=== PATIENT | male | born 1960 | race Caucasian/White ===

== ENCOUNTER → 2016-12-22 | Outpatient (CLI) | payer MEDICARE | END | disposition home or self-care (01) | LOC: GMAM 10:50 | PROVIDERS: ATTEND Family Medicine | DX: Z12.5 Encounter for screening for malignant neoplasm of prostate (principal); I10 Essential (primary) hypertension ==

== ENCOUNTER 2017-11-11 07:49 | Emergency (ER) | payer MEDICARE ==
[2017-11-11 08:11] VITALS: TEMP 97.8
[2017-11-11 08:51] VITALS: BP 112/61; O2SAT 68
--- NOTE | 2017-11-11 09:00 | CT ---
EXAM DESCRIPTION: Head CLINICAL HISTORY: dizziness on blood thinners COMPARISON: November 09, 2017 TECHNIQUE: Noncontrast transaxial CT images of the head are obtained from base to vertex. This exam was performed according to our departmental dose-optimization program, which includes automated exposure control, adjustment of the mA and/or kV according to patient size and/or use of iterative reconstruction technique. FINDINGS: The midline structures are not displaced. The sulci are age appropriate. The lateral, third, and fourth ventricles are normal in size, shape, and anatomic positioning. There is no evidence of mass, mass effect, hydrocephalus, or acute intracranial hemorrhage. No abnormal extra axial fluid collections are seen. Normal quintero-white differentiation is seen. The visualized bone windows show no depressed skull fracture or significant abnormality. The visualized paranasal sinuses and mastoid air cells are clear. Partly visualized is a 2.5 mm metallic density possibly catheter tip measuring 6 mm in length anteriorly on the left at the level of the foramen magnum process seen on axial image 1 of series 3 and coronal image 78. IMPRESSION: 1. No acute abnormality is seen on noncontrast CT of the head. 2. Metallic density possible catheter tip in the upper cervical spinal canal to foramen magnum on the left. Correlate with patient history of any spinal infusion catheter or dorsal column stimulator or other surgery/procedure. 3. No CT evidence of acute intracranial hemorrhage. Electronically signed by: Chepe López MD 11/11/2017 8:59 AM CDT
--- NOTE | 2017-11-11 09:03 | RAD ---
Portable chest INDICATION: Dizziness body aches COMPARISON: January 02, 2014 IMPRESSION: Normal heart size. Lungs are clear. No acute chest process. Electronically signed by: Rob Garnica MD 11/11/2017 9:02 AM CDT
[2017-11-11] MEDS ORDERED: SODIUM CHLORIDE 0.9% 1000ML 1,000 ML IVS ONE (09:11)
[2017-11-11] MEDS ORDERED: KETOROLAC TROMETHAMINE INJ 30 MG/ML VIAL ONE (10:11)
--- NOTE | 2017-11-11 11:21 | ED.PDOC ---
History of Present Illness - General Chief Complaint: General Stated Complaint: Dizziness, "hurts all over" Time Seen by Provider: 11/11/17 08:01 - History of Present Illness Allergies/Adverse Reactions: Allergies NO KNOWN ALLERGY Allergy (Verified 01/02/14 13:09) Home Medications: Ambulatory Orders Clopidogrel Bisulfate [Plavix] 75 mg PO QD 01/02/14 Lisinopril 20 mg PO DAILY 01/02/14 Metoprolol Succinate [Metoprolol Succinate ER] 25 mg PO BID 01/02/14 Rosuvastatin Calcium [Crestor] 40 mg PO BEDTIME 01/02/14 Methadone HCl [Methadone HCl] 20 mg PO BID 11/11/17 Oxycodone HCl [Oxycodone HCl] 20 mg PO QID 11/11/17 Past Medical History (General) - Patient Medical History Hx Seizures: No Hx Stroke: No Hx Dementia: No Hx Asthma: No Hx of COPD: Yes Hx Cardiac Disorders: Yes - hypercholesterolemia; [place] x 6 Hx Congestive Heart Failure: No Hx Pacemaker: No Hx Hypertension: Yes Hx Thyroid Disease: No Hx Diabetes: No Hx Gastroesophageal Reflux: Yes Hx Renal Disease: No Hx Cancer: No Hx Hepatitis C: No Surgical History: other - Vaccination History Hx Tetanus, Diphtheria Vaccination: Yes Hx Influenza Vaccination: No Hx Pneumococcal Vaccination: No - Social History Hx Tobacco Use: Yes Hx Chewing Tobacco Use: No Hx Alcohol Use: No Hx Substance Use: No Hx Substance Use Treatment: No Hx Depression: No Hx Physical Abuse: No Hx Emotional Abuse: No Hx Suspected Abuse: No - Female History Patient : No Family Medical History - Family History Paternal Living Status: Hx Cardiac Disease: Yes Progress - Results/Orders Results/Orders: see papar report. ua within normal limits Departure - Departure Disposition: Discharge to Home or Self Care Departure Forms: ED Discharge - Pt. Copy, Patient Portal Self Enrollment Referrals: Abdullahi Obando MD [Primary Care Provider] - 1-2 Weeks Home Medications: Ambulatory Orders Clopidogrel Bisulfate [Plavix] 75 mg PO QD 01/02/14 Lisinopril 20 mg PO DAILY 01/02/14 Metoprolol Succinate [Metoprolol Succinate ER] 25 mg PO BID 01/02/14 Rosuvastatin Calcium [Crestor] 40 mg PO BEDTIME 01/02/14 Methadone HCl [Methadone HCl] 20 mg PO BID 08/23/18 Oxycodone HCl [Oxycodone HCl] 20 mg PO QID 11/11/17
== END 2017-11-11 10:35 | disposition home or self-care (01) ==
LOC: ER 07:49
DX: F07.81 Postconcussional syndrome (principal); F11.23 Opioid dependence with withdrawal; G44.309 Post-traumatic headache, unspecified, not intractable; I25.2 Old myocardial infarction; I10 Essential (primary) hypertension; E78.00 Pure hypercholesterolemia, unspecified; J44.9 Chronic obstructive pulmonary disease, unspecified; K21.9 Gastro-esophageal reflux disease without esophagitis; Z79.899 Other long term (current) drug therapy; Z87.891 Personal history of nicotine dependence
CPT/HCPCS: 36415; 70450; 71045; 80053; 80307; 81001; 82550; 82553; 83605; 83735; 83880; 84443; 84484; 85025; 85379; 85610; 85730; 87086; 93005; J1885; J7030

== ENCOUNTER → 2018-04-01 | Outpatient (CLI) | payer MEDICARE ==
--- NOTE | 2018-04-01 13:58 | MRI ---
EXAM DESCRIPTION: Lumbar Spine w/o Contrast : Magnetic Resonance Imaging. CLINICAL HISTORY: RADICULOPATHY COMPARISON: None. TECHNIQUE: Multiplanar, multiple standard sequences, non contrast MRI, lumbar spine. FINDINGS: L5-S1: Partial bony fusion of the disc space with interbody fusion device and magnetic susceptibility artifact. Bilateral moderate foraminal narrowing with mild canal narrowing. Bilateral facet joints are partially fused. L4-5: Anterior screw above the inferior L4 endplate with anterior interspace fusion device. Magnetic susceptibility artifact. Bone graft material also in the lateral disc space on the left. Moderate to severe right foraminal narrowing and moderate left foraminal narrowing with mild canal narrowing. Bilateral facet joint effusion and posterior decompression. L3-4: Anterior interspace fusion with anterior screws above and below the disc space. Artifact partially obscures the anterior disc space. Bone graft material in the mid and posterior disc space. Mild bilateral foraminal narrowing. Mild canal narrowing. Bilateral facet joint fusion and posterior decompression. L2-3: Anterior space effusion anteriorly with superior and inferior screw attachment. Bone graft material in the remainder of the disc space. Mild canal narrowing. Bilateral foramina are patent. Posterior facet joints are fused; minimal flavum ligament hypertrophy and mild canal narrowing. L1-2: Disc desiccation and Schmorl's node inferior L1 endplate. No posterior bulge. Hypertrophic changes in the flavum ligaments and facet joints resulting in borderline mild canal stenosis. Bilateral moderate foraminal narrowing. T12-L1: Disc desiccation and tiny posterior midline bulge. Disc space preserved. Minimal anterior bulge more to the left with anterior endplate spurs. Anterior left lateral Modic type II endplate reactive changes. Posterior flavum ligament hypertrophy and minimal facet arthrosis with moderate canal narrowing. Bilateral mild foraminal narrowing. Marrow edema in the bilateral T12 pedicles. Questionable defect in the left T12 pars interarticularis. Spine is slightly kyphotic at the L1-L4 levels. Paravertebral soft tissues unremarkable.. Normal marrow signal in the remaining vertebral bodies and the posterior elements. Vertebral bodies are not compressed at any level. IMPRESSION: 1. Multiple fusions previous fusions at L5-S1, L4-5, L3-4, and L2-3. Anterior fusion devices still present at L2-3, L3-4, and L4-5. No abnormal fluid accumulation paravertebral soft tissues or in the spinal canal. Bone graft material also seen at L to 3, L3-4, and L4-L5. Residual interbody fusion device at L5-S1 with possible subsidence. 2. Borderline mild canal stenosis at L1-2 predominantly due to hypertrophic posterior elements. Bilateral moderate foraminal narrowing. 3. Moderate to severe right foraminal narrowing and moderate left foraminal narrowing at L4-5. Correlate for right L4 radiculopathy. 4. Bilateral T12 pedicles with marrow edema is could be related to stress. Questionable defect in the left T12 pars interarticularis. Electronically signed by: Kailash Diaz MD 04/01/2018 1:56 PM [facility]
== END ==
LOC: MRI 07:52
PROVIDERS: ATTEND Psychiatry & Neurology Neurology
DX: M54.16 Radiculopathy, lumbar region (principal); M48.061 Spinal stenosis, lumbar region without neurogenic claudication; Z98.1 Arthrodesis status

== ENCOUNTER 2018-04-22 08:02 | Emergency (ER) | payer MEDICARE ==
--- NOTE | 2018-04-22 09:11 | RAD ---
EXAM DESCRIPTION: Chest,1 View CLINICAL HISTORY: 57 years Male, fever COMPARISON: Chest radiograph 11/11/2017. TECHNIQUE: Frontal and lateral views of the chest. IMPRESSION: Cardiac silhouette is stably enlarged. Aorta is partially calcified. Patchy airspace opacities are present throughout the lungs with moderate right greater than left basal consolidations. This can be seen with multifocal pneumonia. There is a somewhat circumscribed oval-shaped opacity in the right upper lung overlying the posterior right fifth rib. This may represent additional site of infection. Recommend follow-up to resolution to exclude underlying neoplasm. No pleural effusion or pneumothorax. Osseous structures are intact. Electronically signed by: Jaciel La MD 04/22/2018 9:09 AM [facility]
[2018-04-22] MEDS ORDERED: cefTRIAXone SODIUM 2 GM in SODIUM CHL 0.9% 100ML MINI-BAG 100 ML IVPB ONE (09:26)
--- NOTE | 2018-04-22 09:32 | ED.PDOC ---
History of Present Illness - General Chief Complaint: General Stated Complaint: cough Time Seen by Provider: 04/22/18 08:33 Source: patient Exam Limitations: no limitations - History of Present Illness Initial Comments: Liban Kumar 57 y/o male stated that he had mildly productive cough for the last 4 days which had been getting worse for the last 3 days.Also had body aches and fever.He continue to smoke almost 2 ppd ;exposed to several people with same illness. Had no flu immunization this year.Has history of CAD s/p cardiac stents x 8 and stated not been taking his medications regularly due to some bleeding.Also has chronic back pain from previous surgery and back injuries on chronic opiod medications. Timing/Duration: other - 6 days Severity: moderate Improving Factors: nothing Worsening Factors: nothing Associated Symptoms: cough Allergies/Adverse Reactions: Allergies NO KNOWN ALLERGY Allergy (Verified 01/02/14 13:09) Home Medications: Ambulatory Orders Clopidogrel Bisulfate [Plavix] 75 mg PO QD 01/02/14 Lisinopril 20 mg PO DAILY 01/02/14 Metoprolol Succinate [Metoprolol Succinate ER] 25 mg PO BID 01/02/14 Rosuvastatin Calcium [Crestor] 40 mg PO BEDTIME 01/02/14 Methadone HCl 20 mg PO BID 11/11/17 Oxycodone HCl 20 mg PO QID 11/11/17 Cefuroxime Axetil [Ceftin] 500 mg PO Q12H 10 Days #20 tablet 04/22/18 Doxycycline Hyclate 100 mg PO BID 7 Days #14 tab 04/22/18 Oseltamivir Capsule [Tamiflu] 75 mg PO BID 5 Days #10 capsule 04/22/18 Review of Systems - Review of Systems Constitutional: States: no symptoms reported EENTM: States: no symptoms reported Respiratory: States: see HPI Cardiology: States: no symptoms reported Gastrointestinal/Abdominal: States: no symptoms reported Genitourinary: States: no symptoms reported Musculoskeletal: States: see HPI, back pain - chronic Neurological: States: no symptoms reported Endocrine: States: no symptoms reported Hematologic/Lymphatic: States: no symptoms reported All other Systems: Reviewed and Negative Past Medical History (General) - Patient Medical History Hx Seizures: No Hx Stroke: No Hx Dementia: No Hx Asthma: No Hx of COPD: Yes Hx Cardiac Disorders: Yes - hypercholesterolemia; [place] x 6 Hx Congestive Heart Failure: No Hx Pacemaker: No Hx Hypertension: Yes Hx Thyroid Disease: No Hx Diabetes: No Hx Gastroesophageal Reflux: Yes Hx Renal Disease: No Hx Cancer: No Hx Hepatitis C: No Surgical History: other - cardiac stents,back surgeries - Vaccination History Hx Tetanus, Diphtheria Vaccination: Yes Hx Influenza Vaccination: No Hx Pneumococcal Vaccination: No - Social History Hx Tobacco Use: Yes Hx Chewing Tobacco Use: No Hx Alcohol Use: No Hx Substance Use: No Hx Substance Use Treatment: No Hx Depression: No Hx Physical Abuse: No Hx Emotional Abuse: No Hx Suspected Abuse: No - Activities of Daily Living Patient Lives Alone: No - Female History Patient : No Family Medical History - Family History Paternal Living Status: Hx Cardiac Disease: Yes - multiple family members Physical Exam - Physical Exam General Appearance: Alert, Comfortable, No apparent distress Eye Exam: bilateral normal Ears, Nose, Throat: hearing grossly normal, normal ENT inspection, normal pharynx Neck: non-tender, full range of motion, supple, normal inspection Respiratory: chest non-tender, no respiratory distress, decreased breath sounds Cardiovascular/Chest: normal peripheral pulses, regular rate, rhythm, no murmur Peripheral Pulses: radial,right: 2+, radial,left: 2+ Gastrointestinal/Abdominal: non tender, soft, no organomegaly Back Exam: no CVA tenderness, no vertebral tenderness Neurologic: alert, oriented x 3 Skin Exam: normal color, warm/dry Lymphatic: no adenopathy Progress - Progress Progress: 04/22/18 09:43 Vital Signs - 8 hr 04/22/18 08:02 Temperature 101.8 F H Pulse Rate [ 101 H Left Brachial] Respiratory 20 Rate Blood Pressure 167/96 [Left Arm] O2 Sat by Pulse 93 L Oximetry 04/22/18 10:33 Discuss all test result with patient regarding positve flu a and CXR-pne that he needs to stay in the hospital he stated prefers to be treated at home since he will recover better and faster recommended IV antibiotic here in er and agreed with plan and to call oral antibiotics at [facility] stated to come back to ER if he gets worse. - Results/Orders Results/Orders: 04/22/18 08:34 URINALYSIS Stat Laboratory Results - last 24 hr 04/22/18 04/22/18 04/22/18 08:48 08:48 08:48 WBC 8.3 RBC 4.68 L Hgb 12.8 L Hct 39.1 L MCV 83.6 MCH 27.3 MCHC 32.8 L RDW 15.7 H Plt Count 186 MPV 9.0 Absolute Neuts (auto) 6.40 Absolute Lymphs (auto) 1.10 Absolute Monos (auto) 0.60 Absolute Eos (auto) 0.10 Absolute Basos (auto) 0.10 Neutrophils % 77.4 Lymphocytes % 13.7 L Monocytes % 7.0 Eosinophils % 1.1 Basophils % 0.8 Sodium 132 L Potassium 3.8 Chloride 97 L Carbon Dioxide 28 Anion Gap 10.8 L BUN 12 Creatinine 0.70 BUN/Creatinine Ratio 17.1 Random Glucose 131 H Serum Osmolality 266.1 L Lactic Acid 0.9 Calcium 8.5 Positive FLU -A - EKG/XRAY/CT XRAY: chest - multi focal patchy infiltrates Departure - Departure Clinical Impression: Influenza A Pneumonia Qualifiers: Pneumonia type: due to unspecified organism Laterality: bilateral Lung location: unspecified part of lung Qualified Code(s): J18.9 - Pneumonia, u nspecified organism Time of Disposition: 10:40 Disposition: Discharge to Home or Self Care Condition: Fair Departure Forms: ED Discharge - Pt. Copy, Patient Portal Self Enrollment Instructions: Flu, Flu, Adult (DC), Community-Acquired Pneumonia in Adults, Pneumonia, Adult (DC), Quitting Smoking for Older Adults, Quitting Smoking Referrals: Abdullahi Obando MD [Primary Care Provider] - 1-2 Weeks Prescriptions: Cefuroxime Axetil [Ceftin] 500 mg PO Q12H 10 Days #20 tablet Doxycycline Hyclate 100 mg PO BID 7 Days #14 tab Oseltamivir Capsule [Tamiflu] 75 mg PO BID 5 Days #10 capsule Home Medications: Ambulatory Orders Clopidogrel Bisulfate [Plavix] 75 mg PO QD 01/02/14 Lisinopril 20 mg PO DAILY 01/02/14 Metoprolol Succinate [Metoprolol Succinate ER] 25 mg PO BID 01/02/14 Rosuvastatin Calcium [Crestor] 40 mg PO BEDTIME 01/02/14 Methadone HCl 20 mg PO BID 11/11/17 Oxycodone HCl 20 mg PO QID 11/11/17 Cefuroxime Axetil [Ceftin] 500 mg PO Q12H 10 Days #20 tablet 04/22/18 Doxycycline Hyclate 100 mg PO BID 7 Days #14 tab 04/22/18 Oseltamivir Capsule [Tamiflu] 75 mg PO BID 5 Days #10 capsule 04/22/18 Additional Instructions: Tylenol 500 mg every 4 hours for fever;Drink extra fluids;continue with all home medications;Return to Emergency Room as needed;May take Mucinx DM 1-2 tablets am/pm for cough and Benadry 25 mg at bedtime
[2018-04-22 09:42] VITALS: BP 167/96; TEMP 101.8
[2018-04-22] MEDS ORDERED: OSELTAMIVIR 75 MG CAP PO ONE (09:48)
[2018-04-22] MEDS ORDERED: SODIUM CHL 0.9% 100ML MINI-BAG 100 ML IVPB ONE (10:09)
[2018-04-22] MEDS ORDERED: ACETAMINOPHEN 500 MG TAB PO ONE (10:37)
[2018-04-22] MEDS ORDERED: DOXYCYCLINE HYCLATE CAP 100 MG CAP PO ONE (10:38)
[2018-04-22 12:12] VITALS: O2SAT 95
== END 2018-04-22 11:32 | disposition home or self-care (01) ==
LOC: ER 08:02
DX: J18.9 Pneumonia, unspecified organism (principal); J10.1 Influenza due to other identified influenza virus with other respiratory manifestations; J44.9 Chronic obstructive pulmonary disease, unspecified; E78.00 Pure hypercholesterolemia, unspecified; I25.2 Old myocardial infarction; I10 Essential (primary) hypertension; K21.9 Gastro-esophageal reflux disease without esophagitis; Z95.5 Presence of coronary angioplasty implant and graft; Z79.899 Other long term (current) drug therapy; Z87.891 Personal history of nicotine dependence
CPT/HCPCS: 71045; 80048; 83605; 85025; 87502; J0696; J7050

== ENCOUNTER → 2018-05-17 | Outpatient (CLI) | payer MEDICARE | LOC: GMAM 14:26 | PROVIDERS: ATTEND Family Medicine | DX: J18.9 Pneumonia, unspecified organism (principal) ==

== ENCOUNTER → 2018-05-19 | Outpatient (CLI) | payer MEDICARE ==
--- NOTE | 2018-05-19 09:47 | CT ---
EXAM DESCRIPTION: Chest w/Contrast CLINICAL HISTORY: 57 years, Male, PULMONARY NODULE COMPARISON: X-ray chest April 22, 2018 TECHNIQUE: Thin-section noncontrast axial CT images are obtained according to our protocol. Reconstructed MPR images are created and reviewed as well. FINDINGS: Lungs: Reticulonodular scarring in the left apex is seen consistent with old granulomatous infection. Subpleural cystic changes in the right apex with few scattered granulomatous nodules. Nodular density in the right upper lobe seen on the chest x-ray April 22, 2018 is correlated with the present findings. Small densities are seen in the right upper lobe. A 6 mm nodule with irregular margins is seen on axial image 37, series 4 with small cluster of nodules in the posterior segment of the right upper lobe, the largest measuring 7 mm (axial image 44, series 4). Other scattered smaller nodules are present, fairly numerous. Nodular infiltrate posterior to the right pulmonary hilum is present. Minimal patchy groundglass infiltrates in the right upper lobe above the minor fissure. It has been four weeks since the previous chest x-ray and the nodular infiltrate in the right upper lobe and confluent area in the left perihilar region have apparently improved since that time. These present CT findings are unlikely to be visible on a chest x-ray. Mild subpleural fibrotic changes are seen in the lingula and anterior segment left upper lobe no acute appearing infiltrate or worrisome mass in the left lung. Mediastinum: Lymph nodes are normal in size. Normal vascular contours. Heart size is normal with no pericardial effusion. Moderate coronary arterial calcification is present. Chest wall/axilla: No mass or adenopathy. Lower neck/supraclavicular: No mass or adenopathy. Upper abdomen: Tiny cyst in the left lobe of liver measures 3 mm. No calcified stones in the gallbladder. Otherwise unremarkable upper abdominal viscera. Coronal and sagittal reformatted images confirm the findings. Sagittal images show midthoracic vertebral wedging with multilevel Schmorl's nodes and vacuum disc phenomenon. Mild posterior annular bulges in the mid thoracic level without significant spinal canal compromise. Sagittal images show tiny nodule in the superior segment left lower lobe 3 mm (sagittal image 172, series 601) patchy groundglass infiltrates in both lungs are apparent on the sagittal and coronal reformatted images. Pulmonary nodules should be followed up as per recommendations below (Fleischner Society 2017). IMPRESSION: Small pulmonary nodules 3 to 7 mm with scattered areas of groundglass infiltrate. Findings are most consistent with infectious process. Follow-up as per recommendations below. 2017 Fleischner Society Recommendations for Multiple Solid Lung Nodules Follow-Up base on size (average of long- and short-axis diameters). Use most suspicious nodule for followup. Nodule Size <6 mm Low-Risk Patient: No routine follow-up Nodule Size <6 mm High-Risk Patient: Optional CT at 12 months Nodule Size 6-8 mm Low-Risk Patient: CT at 3-[address] at 18-24 months Nodule Size 6-8 mm High-Risk Patient: CT at 3-6 months then at 18-24 months This exam was performed according to our departmental dose-optimization program, which includes automated exposure control, adjustment of the mA and/or kV according to patient size and/or use of iterative reconstruction technique. Total DLP equals 882.12 mGycm. Electronically signed by: Bar Nation MD 05/19/2018 9:44 AM [facility]
== END ==
LOC: CT 08:21
PROVIDERS: ATTEND Family Medicine
DX: R91.1 Solitary pulmonary nodule (principal)

== ENCOUNTER → 2018-07-08 | Outpatient (CLI) | payer MEDICARE | LOC: GMAM 10:55 | PROVIDERS: ATTEND Family Medicine | DX: I10 Essential (primary) hypertension (principal); E78.2 Mixed hyperlipidemia ==

== ENCOUNTER → 2018-07-25 | Outpatient (CLI) | payer MEDICARE ==
--- NOTE | 2018-07-25 10:20 | RAD ---
EXAM DESCRIPTION: Wrist,Right 3 Views CLINICAL HISTORY: 57 years, Male, RT WRIST PAIN COMPARISON: None FINDINGS: Right wrist 3 x-ray views is negative for fracture or dislocation. Carpal relationships are well-maintained. Distal radius and ulna appear intact. Normal metacarpals. Mild narrowing of the radiocarpal joint. Mild degenerative changes of the first carpometacarpal joint and first metacarpal phalangeal joint. IMPRESSION: Negative for fracture or dislocation. Electronically signed by: Bar Nation MD 07/25/2018 10:18 AM CDT
== END ==
LOC: RAD 07:31
PROVIDERS: ATTEND Orthopaedic Surgery
DX: Z01.818 Encounter for other preprocedural examination (principal); M25.531 Pain in right wrist

== ENCOUNTER 2018-08-26 05:25 | Day surgery (SDC) | payer MEDICARE ==
--- NOTE | 2018-08-23 09:58 | HP ---
CHIEF COMPLAINT: Right hand numbness and second and third digit locking. HISTORY OF PRESENT ILLNESS: Liban is a 57-year-old male with a history of numbness, pain and locking in the right hand. He has had this going on for months and it has been getting progressively worse. He says the pain in the fingers causes him difficulty with daily activity. He wakes up with the hand numb and does have numbness during the day with activity as well. After discussing the risks, benefits and alternatives to outpatient, he has given informed consent. PAST SURGICAL HISTORY: 1. Multiple lumbar surgeries. 2. Bilateral knee surgery. MEDICATIONS: 1. Amlodipine. 2. Crestor. 3. Glucophage. 4. Lisinopril. 5. Lopressor. 6. Plavix. 7. Spiriva. 8. Tricor. 9. Brio. 10. Shingrix. 11. Flomax. 12. Proventil. 13. Zofran. 14. Clonazepam. 15. Methadone. 16. Oxycodone. 17. Aspirin. 18. Omeprazole. ALLERGIES: NO KNOWN DRUG ALLERGIES. FAMILY HISTORY: None pertinent to today's complaint. SOCIAL HISTORY: The patient does not drink or use any illicit drugs. He does smoke. REVIEW OF SYSTEMS: Negative except as indicated in the History of Present Illness. PHYSICAL EXAMINATION: VITAL SIGNS: Blood pressure 139/84. Pulse 88. Height 6'. Weight 237 pounds. MENTAL STATUS: The patient is awake, alert, and is able to give a good history and participate in the physical. The patient is oriented to person, place and time. SKIN: Normal tone and turgor. MUSCULOSKELETAL: He has positive Tinel's and positive carpal compression test. He has intact analyst programmer strength. He has pain with motion of second and third digit. He has pain over the A1 pulleys of the second and third digits. He has no overall deformity or malalignment. ASSESSMENT: 1. Carpal tunnel syndrome. 2. Trigger finger, second and third digit. PLAN: At this point, we are planning carpal tunnel release as well as trigger finger A1 delmis release. We have discussed the risks, benefits, and alternatives to that and the patient has given informed consent. #[id number] [facility]
[2018-08-26] MEDS ORDERED: LACTATED RINGERS 1,000 ML ONE (07:11)
[2018-08-26] MEDS ORDERED: SODIUM CHL 0.9% 100ML MINI-BAG 100 ML IVPB ONE (07:11)
[2018-08-26] MEDS ORDERED: ceFAZolin SODIUM 1 GM VIAL ONE ×2 (07:11→08:34)
[2018-08-26] MEDS ORDERED: amLODIPine BESYLATE 5 MG TAB ONE (08:13)
[2018-08-26] MEDS ORDERED: METOPROLOL TARTRATE 25 MG TAB ONE (08:13)
[2018-08-26] MEDS ORDERED: OMEPRAZOLE CAP 20 MG CAP ONE (08:13)
[2018-08-26] MEDS ORDERED: LEVALBUTEROL NEBS 1.25 MG/3 ML VIAL NEB ONE ×2 (08:25→08:30)
[2018-08-26] MEDS ORDERED: METOPROLOL TARTRATE 50 MG TAB PO ONE (08:31)
[2018-08-26] MEDS ORDERED: OMEPRAZOLE CAP 20 MG CAP PO ONE (08:31)
[2018-08-26] MEDS ORDERED: amLODIPine BESYLATE 5 MG TAB PO ONE (08:31)
[2018-08-26] MEDS ORDERED: VANCOMYCIN HCL INJ 1,000 MG VIAL IVPB ONE (08:34)
[2018-08-26] MEDS ORDERED: BUPIVACAINE 0.25% INJ 30 ML VIAL INJ ONE (08:34)
[2018-08-26] MEDS ORDERED: fentaNYL CITRATE INJ 50 MCG/ML AMP ONE (08:41)
[2018-08-26] MEDS ORDERED: MIDAZOLAM INJ 5 MG/5 ML VIAL ONE (08:41)
[2018-08-26] MEDS: LIDOCAINE 1% 50 ML VIAL INJ ONE ×2 (09:10→09:26)
[2018-08-26] MEDS ORDERED: PROPOFOL 200 MG/20 ML VIAL IV ONE (10:00)
[2018-08-26] MEDS ORDERED: LIDOCAINE 1% 10 ML VIAL INJ ONE (10:00)
[2018-08-26 10:25] VITALS: BP 123/61; TEMP 97.8; O2SAT 97
--- NOTE | 2018-08-30 09:07 | OP ---
DATE OF PROCEDURE: 08/26/18 PREOPERATIVE DIAGNOSIS: 1. Right carpal tunnel syndrome. 2. Right second and third trigger finger. POSTOPERATIVE DIAGNOSIS: 1. Right carpal tunnel syndrome. 2. Right second and third trigger finger. PROCEDURE: 1. Carpal tunnel release. 2. Trigger finger release at the second and third digits. SURGEON: Vern Mead MD. NECKTIE TURNER: Kailash De Luna CST, JUAQUIN. ANESTHESIA: Local with sedation. COMPLICATIONS: None. FINDINGS: 1. Narrowing of the median nerve. 2. Thickening of the transverse carpal ligament. 3. Triggering at the A1 delmis of both the second and third digits. INDICATION: Mr. Kumar has a history of both triggering at the A1 pulleys of the second and third digits as well as numbness of the digits. We discussed his diagnoses and after discussing the risks, benefits and alternatives to operative therapy, the patient has given informed consent for the above procedures. PROCEDURE: The patient was brought to the Operating Room and placed in the supine position. Sedation was administered and local anesthetic was injected into the operative area under sterile conditions. After the injection of anesthetic, the arm was sterilely prepped and draped. A longitudinal incision was made directly overlying the transverse carpal ligament and blunt dissection was carried down to the ligament. The transverse carpal ligament was sharply transected along its length and a Pendleton elevator was used to ensure complete release of the ligament. Once release had been confirmed, the wound was thoroughly irrigated and the wound was closed with Nylon suture. Attention was then focused on the trigger fingers. A transverse incision was made over the A1 delmis of the second digit. Blunt dissection was carried down to the A1 delmis, which was sharply incised. Pendleton elevated was passed both proximally and distally to ensure complete release. Attention was then focused on the third digit where a transverse incision was made over the A1 delmis. Blunt dissection was carried down to the A1 delmis and it was identified and sharply incised. Pendleton elevated was passed both proximally and distally to ensure complete release. Once complete release had been performed, all wounds were thoroughly irrigated and closed with Nylon sutures. Sterile dressings were placed. The patient was taken to the Day Surgery Unit. POSTOPERATIVE PLAN: The patient has been encouraged to do range of motion of the digits and will followup with us in two days. #[id number] [facility]
== END 2018-08-26 11:07 | disposition home or self-care (01) ==
LOC: AMB 05:25
PROVIDERS: ATTEND Orthopaedic Surgery
DX: G56.01 Carpal tunnel syndrome, right upper limb (principal); M65.321 Trigger finger, right index finger; M65.331 Trigger finger, right middle finger; Z79.84 Long term (current) use of oral hypoglycemic drugs; Z79.02 Long term (current) use of antithrombotics/antiplatelets; Z79.891 Long term (current) use of opiate analgesic; Z79.51 Long term (current) use of inhaled steroids; Z79.82 Long term (current) use of aspirin; Z79.899 Other long term (current) drug therapy
CPT/HCPCS: 01810; 26055; 36416; 64721; 82948; 94640; J0690; J2250; J3010; J3370; J3490; J7050; J7120; J7614

== ENCOUNTER → 2018-12-01 | Outpatient (CLI) | payer MEDICARE | LOC: GMAL 11:02 | PROVIDERS: ATTEND Family Medicine | DX: D64.9 Anemia, unspecified (principal); J44.9 Chronic obstructive pulmonary disease, unspecified ==

== ENCOUNTER 2018-12-19 06:36 | Observation (INO) | payer MEDICARE ==
[2018-12-19] MEDS ORDERED: ASPIRIN TABLET 325 MG TAB PO ONE (06:46)
--- NOTE | 2018-12-19 07:20 | ED.PDOC ---
History of Present Illness - General Chief Complaint: Respiratory Problem Stated Complaint: SOB, dizzy, neck pain, chest tightness Time Seen by Provider: 12/19/18 07:13 - History of Present Illness Initial Comments: 58 M +pmh presents with family member to ED c/o acute onset chest tightness without pain and dyspnea at rest upon waking this morning. + h/o multiple NH's with pt endorsed 6 cardiac stents; however, there is documentation of 8 stents in prior ED note. He endorses associated dizziness with symmetrical neck pain. He denies current sx's being similar to previous NH's as they have all had different presentations; no past NH's have presented with CP though. He denies any associated back pain, headache, abdominal pain, n/v, f/c, and/or acute changes in bowels/urination. He is otherwise without any other symptoms or complaints. Allergies/Adverse Reactions: Allergies NO KNOWN ALLERGY Allergy (Verified 12/19/18 06:51) Home Medications: Ambulatory Orders Clopidogrel Bisulfate [Plavix] 75 mg PO QD 01/02/14 Lisinopril 20 mg PO DAILY 01/02/14 Rosuvastatin Calcium [Crestor] 40 mg PO BEDTIME 01/02/14 Methadone HCl 30 mg PO BID 11/11/17 Albuterol Sulfate Nebs [Proventil Nebs] 2.5 mg INH Q4HR PRN 08/23/18 Amlodipine Besylate 10 mg PO DAILY 08/23/18 Aspirin [Aspirin Adult] 325 mg PO DAILY 08/23/18 Fenofibrate [Tricor] 145 mg PO DAILY 08/23/18 Metoprolol Tartrate [Lopressor] 50 mg PO BID 08/23/18 Omeprazole 20 mg PO PRN PRN 08/23/18 Oxycodone HCl [Oxycontin] 40 mg PO Q4HR PRN 08/23/18 Tiotropium [place] Monohydrate [Spiriva Respimat] 2.5 mcg IN DAILY 08/23/18 metFORMIN XR [Glucophage XR] 500 mg PO DAILY 08/23/18 Review of Systems - Review of Systems Constitutional: Denies: chills, diaphoresis, fever EENTM: Denies: no symptoms reported Respiratory: States: cough - chronic, unchanged, short of breath Cardiology: Denies: chest pain, edema, palpitations, syncope Gastrointestinal/Abdominal: Denies: abdominal pain, nausea, vomiting Genitourinary: Denies: dysuria Musculoskeletal: States: neck pain. Denies: back pain Skin: Denies: rash Neurological: States: other - dizziness. Denies: headache, numbness Endocrine: Denies: unexplained weight gain Past Medical History (General) - Patient Medical History Hx Seizures: No Hx Stroke: No Hx Dementia: No Hx Asthma: No Hx of COPD: Yes Hx Cardiac Disorders: Yes - Hx NH Hx Congestive Heart Failure: No Hx Pacemaker: No Hx Hypertension: Yes Hx Thyroid Disease: No Hx Diabetes: No Hx Gastroesophageal Reflux: No Hx Renal Disease: No Hx Cancer: No Hx of HIV: No Hx Hepatitis C: No Hx MRSA: No Surgical History: other - Vaccination History Hx Tetanus, Diphtheria Vaccination: Yes Hx Influenza Vaccination: Yes Hx Pneumococcal Vaccination: Yes - Social History Hx Tobacco Use: Yes Cigarettes Packs Per Day: 2 Hx Chewing Tobacco Use: No Hx Alcohol Use: No Hx Substance Use: No Hx Substance Use Treatment: No Hx Depression: No Hx Physical Abuse: No Hx Emotional Abuse: No Hx Suspected Abuse: No - Female History Patient : No Family Medical History - Family History Paternal Living Status: Hx Cardiac Disease: Yes - multiple family members Physical Exam - Physical Exam General Appearance: Alert, Comfortable, Other - no diaphoresis, NAD Eyes, Ears, Nose, Throat Exam: PERRL/EOMI Neck: full range of motion, supple Respiratory: chest non-tender, other - trace wheezing throughout, diminished throughout, crackles in bilateral bases Cardiovascular/Chest: no edema, bradycardia, other - regular rhythm Gastrointestinal/Abdominal: non tender, soft Extremity: no pedal edema Neurologic: normal mood/affect, oriented x 3 Skin Exam: warm/dry Lymphatic: no adenopathy - no cervical lymphadenopathy Progress - Progress Progress: 12/19/18 07:25 [facility] Number: [id number] Dr. Greg Comer DO Presents with concern for ACS despite no CP vs COPD exacerbation vs acute HF. I will check labs, imaging, EKG, provide appropriate pharmacotherapy including DuoNeb, and continue to monitor/reassess. Dispo will depend on labs, imaging, EKG, and pt's overall course in ED; however, due to hx and presentation I will have low threshold for admission. EKG: SB @ 54, nl axis, prolonged WA and QRS, 0.5-1mm ST elevation in V1-2, no reciprocal depressions, nonspecific ST/T-wave changes. No STEMI. Compared with 11/11/17 EKG: new T-wave inversion in lead III, mild WA prolongation from 198-210 12/19/18 08:55 @[id number] Consulted with hospitalist Valery Cohn, discussed pt's case in ED along with current findings and dx of acute HF. She agrees with observation admission for ECHO today. 12/19/18 08:59 Review of labs and EKG not concerning for ACS but new HF. Renal function is at baseline and with mild CK elevation. XR unremarkable and EKG with nonspecific findings. 12/19/18 09:01 12/19/18 09:06 - Results/Orders Results/Orders: 12/19/18 06:46 EKG Stat Pulse Ox Stat 12/19/18 08:35 ED Intent to Admit Routine Laboratory Results - last 24 hr 12/19/18 06:45 WBC 7.6 RBC 4.65 L Hgb 12.6 L Hct 39.1 L MCV 84.1 MCH 27.0 MCHC 32.1 L RDW 17.9 H Plt Count 233 MPV 9.0 Absolute Neuts (auto) 4.50 Absolute Lymphs (auto) 2.10 Absolute Monos (auto) 0.70 Absolute Eos (auto) 0.20 Absolute Basos (auto) 0.10 Neutrophils % 58.4 Lymphocytes % 27.9 Monocytes % 9.5 H Eosinophils % 3.0 Basophils % 1.2 PT 10.0 INR 1.00 PTT (SP) 23.7 Sodium 136 Potassium 3.9 Chloride 96 L Carbon Dioxide 28 Anion Gap 15.9 BUN 10 Creatinine 0.66 BUN/Creatinine Ratio 15.2 Random Glucose 112 H Serum Osmolality 271.8 L Calcium 9.6 Magnesium 1.8 Creatine Kinase 200 H CK-MB (CK-2) 3.9 CK-MB (CK-2) % 1.95 Troponin I < 0.02 B-Natriuretic Peptide 349.0 H* - EKG/XRAY/CT EKG: Abel, Sinus, nonspecific ST T wave Chg XRAY: chest - no acute cardiopulmonary findings concerning for volume overload CHF or pneumonia Departure - Departure Clinical Impression: Congestive heart failure Qualifiers: Heart failure type: unspecified Heart failure chronicity: acute Qualified Code(s): I50.9 - Heart failure, unspecified COPD (chronic obstructive pulmonary disease) Qualifiers: COPD type: unspecified COPD Qualified Code(s): J44.9 - Chronic obstructive pulmonary disease, unspecified Time of Disposition: 08:36 Disposition: Admit Patient Condition: Good Departure Forms: ED Discharge - Pt. Copy, Patient Portal Self Enrollment Referrals: Abdullahi Obando MD [Primary Care Provider] - 1-2 Weeks Home Medications: Ambulatory Orders Clopidogrel Bisulfate [Plavix] 75 mg PO QD 01/02/14 Lisinopril 20 mg PO DAILY 01/02/14 Rosuvastatin Calcium [Crestor] 40 mg PO BEDTIME 01/02/14 Methadone HCl 30 mg PO BID 11/11/17 Albuterol Sulfate Nebs [Proventil Nebs] 2.5 mg INH Q4HR PRN 08/23/18 Amlodipine Besylate 10 mg PO DAILY 08/23/18 Aspirin [Aspirin Adult] 325 mg PO DAILY 08/23/18 Fenofibrate [Tricor] 145 mg PO DAILY 08/23/18 Metoprolol Tartrate [Lopressor] 50 mg PO BID 08/23/18 Omeprazole 20 mg PO PRN PRN 08/23/18 Oxycodone HCl [Oxycontin] 40 mg PO Q4HR PRN 08/23/18 Tiotropium [place] Monohydrate [Spiriva Respimat] 2.5 mcg IN DAILY 08/23/18 metFORMIN XR [Glucophage XR] 500 mg PO DAILY 08/23/18 Decision To Admit - Decistion To Admit Decision to Admit Reason: Admit from ER Decision to Admit Date: 12/19/18 Decision to Admit Time: 08:34
--- NOTE | 2018-12-19 07:38 | RAD ---
EXAM DESCRIPTION: Chest,2 Views CLINICAL HISTORY: CP SOB COMPARISON: April 22, 2018 FINDINGS: Two-view chest x-ray shows cardiomediastinal silhouette and pulmonary vasculature to be within normal limits. The lungs are normally aerated and clear. Nodular density seen in the right upper lobe on previous exam is not identified on today's exam. Costophrenic angles are sharp. Mild disc degenerative changes of the spine are seen. IMPRESSION: No radiographic evidence of acute cardiopulmonary disease. Electronically signed by: Chepe López MD 12/19/2018 7:37 AM CDT
[2018-12-19] MEDS ORDERED: IPRATROPIUM/ALBUTEROL 3 ML VIAL NEB ONE (08:12)
[2018-12-19] MEDS ORDERED: ONDANSETRON INJ 4 MG/2 ML VIAL IV PRN (12:10)
[2018-12-19] MEDS ORDERED: SODIUM CHLORIDE 0.9% (FLUSH) 10 ML SYG IV PRN (12:10)
[2018-12-19] MEDS ORDERED: ALBUTEROL SULFATE 2.5 MG/3 ML VIAL NEB PRN (12:10)
[2018-12-19] MEDS ORDERED: NITROGLYCERIN 0.4 MG 25 EA TAB SL PRN ×2 (12:10→12:18)
[2018-12-19] MEDS ORDERED: ACETAMINOPHEN 325 MG TAB PO PRN (12:10)
[2018-12-19] MEDS ORDERED: OXYCODONE 20 MG PO SCH (12:15)
[2018-12-19] MEDS ORDERED: IV SET AND CAP CHANGE INJ INJ SCH (12:30)
[2018-12-19] MEDS: IPRATROPIUM/ALBUTEROL 3 ML VIAL INH SCH ×2 (16:49→19:35)
[2018-12-19 17:30] VITALS: O2SAT 97
[2018-12-19 18:25] VITALS: BP 129/76; TEMP 98.2
[2018-12-19] MEDS ORDERED: PANTOPRAZOLE SODIUM TAB 40 MG PO ONE (19:53)
[2018-12-19] MEDS ORDERED: ENOXAPARIN SODIUM 40 MG/0.4 ML SYG SUBCU SCH (21:00)
[2018-12-19] MEDS ORDERED: ATORVASTATIN 20 MG TAB PO SCH (21:00)
[2018-12-19] MEDS ORDERED: METHADONE PO SCH (21:00)
[2018-12-19] MEDS ORDERED: METOPROLOL TARTRATE 50 MG TAB PO SCH (21:00)
[2018-12-20] MEDS ORDERED: PANTOPRAZOLE SODIUM TAB 40 MG PO SCH (06:30)
[2018-12-20] MEDS ORDERED: FENOFIBRIC ACID 135 MG CAP PO SCH (09:00)
[2018-12-20] MEDS ORDERED: LISINOPRIL 10 MG TAB PO SCH (09:00)
[2018-12-20] MEDS ORDERED: CLOPIDOGREL 75 MG TAB PO SCH (09:00)
[2018-12-20] MEDS ORDERED: amLODIPine BESYLATE 5 MG TAB PO SCH (09:00)
[2018-12-20] MEDS ORDERED: metFORMIN XR 500 MG TAB.ER.24 PO SCH (09:00)
[2018-12-20] MEDS ORDERED: ASPIRIN TABLET 325 MG TAB PO SCH (09:00)
--- NOTE | 2018-12-20 11:32 | SSS ---
SUPERVISING PHYSICIAN: Pam Donald MD DISCHARGE DIAGNOSIS: 1. Chest pain, rule out acute coronary syndrome. 2. Shortness of breath, sudden onset, although the patient has a history of tobacco abuse. 3. Hypertension. 4. Chronic obstructive pulmonary disease. 5. Tobacco abuse. 6. Hyperlipidemia. 7. Chronic pain syndrome, mostly lower back pain, presently on narcotics. HISTORY OF PRESENT ILLNESS: This is a 58-year-old male patient who came to the Emergency Room due to chest tightness as well as shortness of breath. It started at home, sudden onset after waking up on the morning of admission. He has a history of myocardial infarctions as well as cardiac stents. He also had some dizziness. There was no nausea or vomiting. He was diaphoretic. His initial vital signs showed temperature 97.3, heart rate 65, blood pressure 173/85, respiratory rate 20, O2 saturation 98% on room air. His initial labs showed CBC that was basically unremarkable. Electrolytes were unremarkable. BMP was 349. Cardiac enzymes were negative. Chest x-ray showed no radiographic evidence of acute cardiopulmonary disease. He was placed in observation in the hospital. PAST MEDICAL HISTORY: 1. Hypertension. 2. Chronic obstructive pulmonary disease. 3. Glucose intolerance. 4. Hyperlipidemia. 5. Chronic lower back pain presently on narcotics. 6. Tobacco abuse. 7. History of heart attack. PAST SURGICAL HISTORY: 1. Coronary artery stent placement. 2. Multiple surgeries of lower back. 3. Knee surgery. 4. Right carpal tunnel release. ALLERGIES: NO KNOWN DRUG ALLERGIES. SOCIAL HISTORY: He is . He has two children. He lives in [place]. He is disabled. He smokes 1 to 2 packs of cigarettes daily. He drinks alcoholic beverages rarely. He denies any illicit drug use. REVIEW OF SYSTEMS: As per the history of present illness. PHYSICAL EXAMINATION: VITAL SIGNS: Temperature 98.2. Heart rate 64. Blood pressure 129/76. Respiratory rate 17. O2 saturation 97%. GENERAL: This is a 58-year-old male patient lying in his hospital bed. He is in no acute distress. HEENT: Normocephalic, atraumatic. Pupils are equal and reactive. Oropharynx is clear. NECK: Supple without mass. CARDIOVASCULAR: Regular rate and rhythm. GASTROINTESTINAL: Abdomen is soft, nondistended, nontender. Bowel sounds are positive. NEUROLOGIC: Awake, alert and oriented times three. SKIN: Warm and dry. LABORATORY: His cardiac enzymes were all negative. Echocardiogram is pending. HOSPITAL COURSE: The patient was placed in observation in the hospital. His cardiac enzymes were negative. There was no further chest pain, dizziness or diaphoresis. His vital signs were stable. We discussed tobacco cessation, that he needed to stop his smoking. He does have an appointment with Dr. Lazaro this week. He also has an appointment with his senior qc technician on January 20. He will be discharged home in stable condition. DISCHARGE PLAN: The patient will be discharged home in stable condition. He is to resume his cardiac diet and increase his activity as tolerated. He needs to followup with Dr. Obando in 1 to 2 weeks. He also needs to followup with Dr. Lazaro on of this week. He also has an appointment with his senior qc technician, Dr. Mark, on January 20. His echocardiogram is pending. BNP was slightly elevated. He has no history of congestive heart failure. He needs to followup with Dr. Lazaro with his echocardiogram. He is to return to the hospital or followup with Dr. Obando for any problems or complications. DISCHARGES MEDICATIONS: 1. Rosuvastatin. 2. Metoprolol. 3. Plavix. 4. Lisinopril. 5. Aspirin. 6. Fenofibrate. 7. Amlodipine. 8. Metformin. 9. Oxycodone. 10. Methadone. #[id number] [facility]
== END 2018-12-19 21:56 | disposition home or self-care (01) ==
LOC: ER 06:36 → MS 09:27
PROVIDERS: ADMIT Nurse Practitioner Acute Care; ATTEND Nurse Practitioner Acute Care
DX: R07.89 Other chest pain (principal); R06.02 Shortness of breath; R42 Dizziness and giddiness; I10 Essential (primary) hypertension; J44.9 Chronic obstructive pulmonary disease, unspecified; F17.210 Nicotine dependence, cigarettes, uncomplicated; E78.5 Hyperlipidemia, unspecified; G89.4 Chronic pain syndrome; M54.5 Low back pain; I25.2 Old myocardial infarction; E74.39 Other disorders of intestinal carbohydrate absorption; M54.2 Cervicalgia; I34.0 Nonrheumatic mitral (valve) insufficiency; I36.1 Nonrheumatic tricuspid (valve) insufficiency; I35.1 Nonrheumatic aortic (valve) insufficiency; Z95.5 Presence of coronary angioplasty implant and graft; Z79.02 Long term (current) use of antithrombotics/antiplatelets; Z79.82 Long term (current) use of aspirin; Z79.84 Long term (current) use of oral hypoglycemic drugs; Z79.891 Long term (current) use of opiate analgesic; Z79.1 Long term (current) use of non-steroidal anti-inflammatories (NSAID); Z79.899 Other long term (current) drug therapy
CPT/HCPCS: 96372; J1650; J7620 ×3; 82553 ×3; 36415 ×3; 82550 ×3; 80048; 85025; 85730; 85610; 84484 ×3; 83880; 71046; 94640 ×2; 94760 ×3; 99406; 99285; 93306; 93005 ×2; G0378

== ENCOUNTER → 2019-01-25 | Outpatient (CLI) | payer MEDICARE ==
--- NOTE | 2019-01-26 11:57 | CT ---
EXAM DESCRIPTION: Chest w/o Contrast CLINICAL HISTORY: LUNG NODULE COMPARISON: May 19, 2018 and November 03, 2017 TECHNIQUE: Noncontrast transaxial CT images of the chest are obtained. This exam was performed according to our departmental dose-optimization program, which includes automated exposure control, adjustment of the mA and/or kV according to patient size and/or use of iterative reconstruction technique . FINDINGS: Heart is enlarged. Severe coronary artery calcifications. No pathologically enlarged mediastinal, hilar, or axillary lymphadenopathy seen. No pleural or pericardial effusion. Visualized portion of the upper abdomen shows no acute findings. Lungs are normally aerated. Small blebs and bulla are seen in the apical regions bilaterally. Tiny less than 5 mm nodular densities in the lung apices are stable compared to prior examinations. Stable 6 mm spiculated pulmonary nodule in the inferior right upper lobe image 46 of series 4 is unchanged from October 2017. Other scattered pulmonary nodules are stable as well. Several calcified pulmonary nodules are seen. Osseous structures show no aggressive bony lesions. Moderate spondylitic changes of the spine are seen. IMPRESSION: Mild emphysematous changes to lungs are stable from previous. Scattered mostly less than 5 mm noncalcified bilateral pulmonary nodules are stable from previous exams dating back to October 2017 including 6 mm spiculated pulmonary nodule in the right upper lobe. Continued follow-up to determine greater than two-year stability is recommended. Electronically signed by: Chepe López MD 01/26/2019 11:55 AM DIRECTOR OF EXHIBIT DEVELOPMENT
== END ==
LOC: CT 10:00
PROVIDERS: ATTEND Internal Medicine
DX: R91.1 Solitary pulmonary nodule (principal); J44.9 Chronic obstructive pulmonary disease, unspecified; J43.9 Emphysema, unspecified

== ENCOUNTER → 2019-08-17 | Outpatient (CLI) | payer MEDICARE | LOC: GMAM 11:45 | PROVIDERS: ATTEND Family Medicine | DX: Z12.5 Encounter for screening for malignant neoplasm of prostate (principal) ==

== ENCOUNTER → 2019-10-03 | Outpatient (CLI) | payer MEDICARE ==
--- NOTE | 2019-10-03 08:43 | CT ---
TECHNIQUE: Axial images of the lumbar spine were obtained with multiple reconstructions provided. This exam was performed according to our departmental dose-optimization program, which includes automated exposure control, adjustment of the mA and/or kV according to patient size and/or use of iterative reconstruction technique. CLINICAL HISTORY PROVIDED: CHRONIC PAIN SYNDROME COMPARISON: April 01, 2018 FINDINGS: Five lumbar type vertebral bodies are present. Alignment: Straightening of the normal lumbar lordosis. Postoperative: L2-S1 no hardware complication. Solid osseous fusion. Fracture: None present. Paraspinal Soft Tissues/ Retroperitoneum: Diffuse atherosclerotic disease. Nothing acute. L1/2: Posterior disc space narrowing. Small symmetric disc bulge osteophyte complex. Bilateral facet hypertrophy. Thickening of the ligamentum flavum. Mild central canal stenosis. Moderate bilateral neural foraminal narrowing. L2/3: Fusion. Posterior ridging osteophytes. Bilateral facet hypertrophy no significant central canal stenosis. No significant neural foraminal narrowing. L3/4: Fusion. Posterior ridging osteophytes. Bilateral facet hypertrophy. Mild bilateral neural foraminal narrowing. No significant central canal stenosis. L4/5: Fusion. Posterior ridging osteophytes. No significant central canal stenosis. Moderate bilateral neural foraminal narrowing. L5/S1: Fusion. Posterior ridging osteophytes. Moderate bilateral neural foraminal narrowing. No significant central canal stenosis. Bilateral facet hypertrophy. IMPRESSION: Postoperative lumbar spine with superimposed acquired degenerative changes as above. Electronically signed by: Yinka Reece MD 10/03/2019 8:41 AM CDT
== END ==
LOC: CT 08:15
PROVIDERS: ATTEND Family Medicine
DX: G89.4 Chronic pain syndrome (principal); M25.78 Osteophyte, vertebrae; M46.96 Unspecified inflammatory spondylopathy, lumbar region; Z98.1 Arthrodesis status

== ENCOUNTER → 2020-01-05 | Outpatient (CLI) | payer MEDICARE ==
--- NOTE | 2020-01-06 05:57 | CT ---
EXAM DESCRIPTION: Chest w/Contrast CLINICAL HISTORY: 59 years Male, SOLITARY PULMONARY NODULE TECHNIQUE: This exam was performed according to our departmental dose-optimization program, which includes automated exposure control, adjustment of the mA and/or kV according to patient size and/or use of iterative reconstruction technique. COMPARISON: 01/25/2019, October 2017 FINDINGS: The thyroid gland is unremarkable. No axillary adenopathy. Atherosclerotic plaque in the thoracic aorta. Coronary artery and aortic valvular calcifications. No pericardial effusion. No evidence of acute process in the visualized upper abdomen. No mediastinal adenopathy. Similar emphysema. No pneumothorax. No pleural effusion. No focal consolidation. Stable benign pulmonary nodules. No new pulmonary nodule identified. No acute or suspicious osseous abnormality. Scattered degenerative changes present. IMPRESSION: Stable benign pulmonary nodules. No new pulmonary nodule identified. Electronically signed by: Yinka Reece MD 01/06/2020 5:55 AM CDT
== END ==
LOC: CT 11:27
PROVIDERS: ATTEND Family Medicine
DX: R91.8 Other nonspecific abnormal finding of lung field (principal); I10 Essential (primary) hypertension

== ENCOUNTER → 2020-02-20 | Outpatient (CLI) | payer MEDICARE ==
--- NOTE | 2020-02-20 11:27 | CT ---
Study: CT of the Thoracic Spine. Indication: failed back syndrome of lumbar spine Technique: Axial CT images of the thoracic spine acquired without intravenous contrast. Coronal and sagittal reformats performed. This exam was performed according to our departmental dose-optimization program, which includes automated exposure control, adjustment of the mA and/or kV according to patient size and/or use of iterative reconstruction technique. Comparison: CT chest January 05 2020. Findings: Examination limited due to streak artifact from the patient's arms. Given this limitation, no acute thoracic fracture. Scattered Schmorl's nodes throughout the thoracic spine. Pedicles congenitally short throughout. Mild loss disc space height throughout the thoracic spine and most pronounced at the mid thoracic levels. Millimetric disc osteophyte complexes at T7-T8 and T8-T9 producing mild spinal canal narrowing. Moderate bilateral neural foraminal narrowing also present at T8-T9 and T9-T10 levels with more pronounced moderate to severe changes at T10-T11 due to facet arthrosis. Partial visualization of a spinal canal lead at the lower cervical spine. Partial visualization of degenerative and postsurgical changes of the lumbar spine. Scattered atherosclerosis. On axial image 42 there is an indeterminate 14 mm nodular focus along right anterolateral margin of the esophagus at the level of the aortic arch. Impression: Multilevel thoracic disc disease without acute fracture. Indeterminate nodular focus along the right anterolateral margin of the esophagus. Further characterization with EGD recommended. Electronically signed by: Henri Casanova MD 02/20/2020 11:25 AM GRADING SUPERVISOR
== END ==
LOC: CT 08:36
PROVIDERS: ATTEND Physical Medicine & Rehabilitation Pain Medicine
DX: M96.1 Postlaminectomy syndrome, not elsewhere classified (principal); M51.34 Other intervertebral disc degeneration, thoracic region; K22.9 Disease of esophagus, unspecified